=== PATIENT | male | born 1935 | race Caucasian/White ===

== ENCOUNTER 2019-01-01 09:20 | Emergency (ER) | payer BC, MEDICARE ==
--- NOTE | 2019-01-01 09:35 | UC ---
Respiratory Complaint HPI - HPI Summary HPI Summary: 83 y/o male presents to the urgent care accompany by son c/o chest congestion w / yellowish phlegm and PND for the past week. Pt reports symptoms started w/ nasal congestion and PND and then his chest became very congested. He lives in [place] and is visiting here. His son gave him Dayquill and Nyquill yesterday since he hasn't been able to sleep well due the cough. However , last night he feels his chest is full of phlegm and unable to get it out. He used to be a heavy everyday smoker and quit 18 years ago. About 10 years ago he was placed on Blood thinners due to possible A-fib or NC as per son. He has been monitor by [employer] Dr Barnett in [facility]. He feels mild SOB since yesterday. Pt denies fever, body aches, dizziness, LARA, chest pain, abdominal pain, N/V/D. He hasn't have the influenza vaccines for many years. - History of Current Complaint Chief Complaint: UCRespiratory Stated Complaint: CHEST CONGESTION Time Seen by Provider: 01/01/19 09:33 Hx Obtained From: Patient Onset/Duration: Gradual Onset, Lasting Weeks - 1 week, Still Present, Worse Since - last night unable to sleep due to cough Timing: Intermittent Episodes Severity Initially: Mild Severity Currently: Moderate Pain Intensity: 0 Pain Scale Used: 0-10 Numeric Character: Cough: Productive, Sputum Description: - yellowish Aggravating Factors: Recumbent Position Associated Signs And Symptoms: Positive: Dyspnea - mild, URI, Nasal Congestion. Negative: Fever, Pleuritic Chest Pain, Wheezing - Risk Factors Pulmonary Embolism Risk Factors: Negative Cardiac Risk Factors: Negative Pseudomonas Risk Factors: Negative Tuberculosis Risk Factors: Negative - Allergies/Home Medications Allergies/Adverse Reactions: Allergies Allergy/AdvReac Type Severity Reaction Status Date / Time No Known Allergies Allergy Verified 01/01/19 09:28 Home Medications: Home Medications Amlodipine Besylate [Norvasc] 5 mg PO DAILY 01/01/19 [History Confirmed 01/01/19 ] Metoprolol Succinate XL TAB* [Toprol XL TAB*] 100 mg PO DAILY 01/01/19 [History Confirmed 01/01/19] Ramipril [Altace] 2.5 mg PO DAILY 01/01/19 [History Confirmed 01/01/19] Rivaroxaban TAB(*) [Xarelto 20 mg] 20 mg PO DAILY 01/01/19 [History Confirmed ] Rosuvastatin Calcium [Crestor] 20 mg PO DAILY 01/01/19 [History Confirmed ] PMH/Surg Hx/FS Hx/Imm Hx Previously Healthy: Yes Endocrine History: Dyslipidemia Cardiovascular History: Cardiac Disease, Hypertension, Atrial Fibrillation - Surgical History Surgical History: None - Family History Known Family History: Positive: Cardiac Disease, Hypertension - Social History Occupation: Retired Lives: With Family Alcohol Use: Daily Substance Use Type: None Smoking Status (MU): Never Smoked Tobacco - Immunization History Most Recent Influenza Vaccination: many years ago Review of Systems All Other Systems Reviewed And Are Negative: Yes Constitutional: Positive: Fatigue, Other - body aches. Negative: Fever Skin: Positive: Negative Eyes: Positive: Negative ENT: Positive: Nasal Discharge - mild, Other - moderate PND Respiratory: Positive: Shortness Of Breath - mild, Cough - productive w/ yellowish phlegm Cardiovascular: Positive: Negative Gastrointestinal: Positive: Negative Genitourinary: Positive: Negative Motor: Positive: Negative Neurovascular: Positive: Negative Musculoskeletal: Positive: Negative Neurological: Positive: Negative Psychological: Positive: Negative Is Patient Immunocompromised?: No Physical Exam - Summary Physical Exam Summary: Vital Signs Reviewed: Yes General: well developed, well nourished old obese male sitting in the examining table w/o any apparent distress Eyes: Positive: Conjunctiva Clear - PERRLA, EOMI, fundi grossly normal ENT: Positive: Normal ENT inspection, Hearing grossly normal, Pharynx normal, Nasal congestion - edematous and erythematous nasal mucosa, Nasal drainage - yellowish drainage, TMs normal. Negative: Tonsillar swelling, Tonsillar exudate Neck: Positive: Supple, Nontender, No Lymphadenopathy Respiratory: no orthopnea or dyspnea. Able to speak in full sentences, no retractions or accessory muscle use, no tripod position, stridor, or head bobbing. Positive breath sounds bilaterally. B/L posterior lungs w/ scattered crackle and rales, no wheezing Cardiovascular: Positive: RRR, No Murmur, Pulses Normal, Brisk Capillary Refill Abdomen Description: Positive: Nontender, No Organomegaly, Soft. Negative: CVA Tenderness (R), CVA Tenderness (L) Bowel Sounds: Positive: Present Musculoskeletal Exam: Normal Musculoskeletal: Positive: Strength Intact, ROM Intact, No Edema Neurological Exam: Normal Psychological Exam: Normal Skin Exam: Normal Triage Information Reviewed: Yes Vital Signs: Initial Vital Signs Temp 97.3 F 01/01/19 09:24 Pulse 106 01/01/19 09:24 Resp 20 01/01/19 09:24 BP 148/102 01/01/19 09:24 Pulse Ox 94 01/01/19 09:24 Respiratory Course/Dx - Course Course Of Treatment: 83 y/o male presents to the urgent care accompany by son c/o chest congestion w / yellowish phlegm and PND for the past week. Pt reports symptoms started w/ nasal congestion and PND and then his chest became very congested. He lives in [place] and is visiting here. His son gave him Dayquill and Nyquill yesterday since he hasn't been able to sleep well due the cough. However , last night he feels his chest is full of phlegm and unable to get it out. He used to be a heavy everyday smoker and quit 18 years ago. About 10 years ago he was placed on Blood thinners due to possible A-fib or NC as per son. He has been monitor by [employer] Dr Barnett in [place]. He feels mild SOB since yesterday. Pt denies fever, body aches, dizziness, LARA, chest pain, abdominal pain, N/V/D. He hasn't have the influenza vaccines for many years. Hx obtained. Pt is hemodynamically stable, A&OX3, O2Sat: 94% and [place]. Pt use to be a heavy everyday smoker, but quit 18 years ago. Pt with B/L posterior lungs w/ scattered crackle and rales, no wheezing. Rapid influenza A&B : negative. Chest X-ray ordered to r/o pneumonia. IMPRESSION: Cardiomegaly with hyperinflated lung pulliam and interstitial edema consistent with edema. Pt w/ CHF and this may be the cause of his chest congestion. I discussed Pt's symptoms and findings w/ Dr Patrick, who advised to due an EKG.EKG: atrial fibrillation, HR:115bpn, PVC and LVH, no ST elevation or depressions. Dr Patrick and I discussed all the findings and test results with patient and PT' s son, who thinks his father has CHF. DR Patrick spoke to [employer] DR Buckley since Son doesn't want to take his father to the ER and instead wants to take his father to see his [employer] and Pt's O2Sat is fluctuating 90-94% . Dr Buckley recommended the patient should be taking to the ER for further testing since Pt has only had Hx of a-fib and this may be new onset of CHF. Pt and son decided they will go to the ER in [place] since Dr Ericka bey see him there. Son advised on the risks on not taking him to a nearer ER. They understood and stated they will rather go to [place]. Pt left the Pt left the clinic hemodynamically stable, A&OX3 and ambulating w/o any difficulty. - Differential Dx/Diagnosis Differential Diagnosis/HQI/PQRI: Asthma, Bronchitis, CHF, Pulmonary Edema, Exacerbation Of COPD, Lower Resp Infection, Other - pneumonia, angina, NC Provider Diagnosis: Atrial fibrillation, New onset of congestive heart failure, Uncontrolled hypertension Discharge ED - Sign-Out/Discharge Documenting (check all that apply): Patient Departure - D/C home All imaging exams completed and their final reports reviewed: Yes - Discharge Plan Condition: Stable Disposition: HOME-RECOMMEND TO ED Patient Education Materials: Heart Failure (ED), A-fib (Atrial Fibrillation) ( ED) Referrals: No Primary Care Phys,NOPCP [Primary Care Provider] - Additional Instructions: Dr Patrick and I think your father needs a higher level or care for your presenting symptoms since he is having new onset of CHF. Dr Patrick spoke to your [employer] Dr Klein and he also recommends to got to the ER for further evaluation and treatment. We highly recommend you to go to take him to the ER for further evaluation and treatment. The risks of not going can be , CHF, heart attack, stroke etc. - Billing Disposition and Condition Condition: STABLE Disposition: Home-Recommend to ED
[2019-01-01 10:12] LABS: Influenza A Molecular NEGATIVE (Negative); Influenza B Molecular NEGATIVE (Negative)
[2019-01-01 10:53] VITALS: BP 147/86
== END 2019-01-01 11:50 | disposition home health service (06) ==
LOC: UCEAST 09:20
DX: I48.91 Unspecified atrial fibrillation (principal); I11.0 Hypertensive heart disease with heart failure; I50.9 Heart failure, unspecified; R91.8 Other nonspecific abnormal finding of lung field; I51.7 Cardiomegaly; E78.5 Hyperlipidemia, unspecified; Z79.01 Long term (current) use of anticoagulants; Z79.899 Other long term (current) drug therapy; Z87.891 Personal history of nicotine dependence
CPT/HCPCS: 71046; 93005; 99201; G0463